=== PATIENT | female | born 2000 | race African-American/Black ===

== ENCOUNTER 2018-03-01 10:27 | Inpatient (IN) | payer MEDICAID ==
[2018-03-01] MEDS ORDERED: RINGERS SOLUTION,LACTATED 1,000 ML IV ONE (10:58)
[2018-03-01] MEDS ORDERED: ACETAMINOPHEN 325 MG TABLET PO PRN (11:05)
[2018-03-01] MEDS ORDERED: CEFTRIAXONE INJ 1000 MG VIAL ONE (11:12)
[2018-03-01] MEDS ORDERED: ACETAMINOPHEN 325 MG TABLET ONE ×2 (11:12→16:22)
--- NOTE | 2018-03-01 11:15 | L&D Progress Notes ---
PROGRESS NOTES Datetime Report Generated by CPN: 03/01/2018 11:15 PROGRESS NOTE Comment: pt came from [facility], left flank pain x 3 days and started a fever last night, frequency Feels sick + CVAT, no leaking of fluid, no bleeding allergic to magalie G1, EDC 3-11-19, [address] Lutz, IV fluids, labs, then Rocephen 1 GM q 24 hours reassuring monitor strip FETUS A Monitoring: External US SIGNATURE SIGNATURE: [id number] Assignment: Vicky Chávez MD Signature: with User ID: [email or web address] : with User ID: [email or web address]
[2018-03-01 11:55] LABS: ABSOLUTE MONOCYTES (AUTO) 2.7 10^3/uL (0.1-1.4); ABSOLUTE NEUT (AUTO) 15.4 10^3/uL (1.7-8.2); BASOPHILS % (AUTO) 0.2 % (0-2); HEMATOCRIT 29.2 % (36.0-47.0); HEMOGLOBIN 9.8 g/dL (12.0-15.5); LYMPHOCYTES % (AUTO) 5.3 % (13-45); MEAN CORPUSCULAR HEMOGLOBIN 26.1 pg (27.0-33.4); MEAN CORPUSCULAR HGB CONC 33.5 g/dL (32.0-36.0); MEAN CORPUSCULAR VOLUME 78 fl (80-97); MONOCYTES % (AUTO) 13.9 % (3-13); PLATELET COUNT 235 10^3/uL (150-450); RED BLOOD COUNT 3.74 10^6/uL (3.72-5.28); SEGMENTED NEUTROPHILS % (AUTO) 80.6 % (42-78); TOTAL CELLS COUNTED % (AUTO) 100 %; WHITE BLOOD COUNT 19.2 10^3/uL (4.0-10.5)
[2018-03-01 11:59] LABS: APPEARANCE,URINE CLOUDY; BILIRUBIN,URINE NEGATIVE (NEGATIVE); COLOR,URINE YELLOW; GLUCOSE, URINE NEGATIVE (NEGATIVE); KETONES,URINE NEGATIVE (NEGATIVE); LEUKOCYTE ESTERASE,URINE LARGE (NEGATIVE); NITRITE,URINE NEGATIVE (NEGATIVE); PROTEIN,URINE 30 mg/dL (NEGATIVE); URINE SPECIFIC GRAVITY 1.013
[2018-03-01 12:15] LABS: URINE AMPHETAMINES SCREEN NEGATIVE; URINE BARBITURATES SCREEN NEGATIVE; URINE BENZODIAZEPINES SCREEN NEGATIVE; URINE COCAINE SCREEN NEGATIVE; URINE MARIJUANA (THC) SCREEN NEGATIVE; URINE METHADONE SCREEN NEGATIVE; URINE PHENCYCLIDINE SCREEN NEGATIVE
[2018-03-01 14:00] LABS: ALANINE AMINOTRANSFERASE 26 U/L (5-35); ALKALINE PHOSPHATASE 101 U/L (50-135); ANION GAP 10 (5-19); ASPARTATE AMINO TRANSFERASE 25 U/L (5-30); BILIRUBIN,DIRECT 0.3 mg/dL (0.0-0.4); BILIRUBIN,TOTAL 0.7 mg/dL (0.2-1.3); BLOOD UREA NITROGEN 5 mg/dL (7-20); CALCIUM 8.6 mg/dL (8.4-10.2); CARBON DIOXIDE 21 mmol/L (22-30); CHLORIDE 102 mmol/L (98-107); GLUCOSE 93 mg/dL (75-110); POTASSIUM 3.3 mmol/L (3.6-5.0); SODIUM 133.4 mmol/L (137-145); TOTAL PROTEIN 6.4 g/dL (6.3-8.2)
[2018-03-01] MEDS ORDERED: LORAZEPAM INJ 2 MG/1 ML VIAL IV ONE (15:11)
--- NOTE | 2018-03-01 15:19 | L&D Progress Notes ---
PROGRESS NOTES Datetime Report Generated by CPN: 03/01/2018 15:18 PROGRESS NOTE Impression Other: pyelonephritis Procedures- Other: monitor/antibiotics Plan: Continue Present Management Vital Signs : Reviewed; Within Normal Limits Comment: Pt called out and stated that she was having chest pains. She looked as if she was having a panic attack. O2 sat is 98% on room air. Will order a CT and EKG. Will also give Ativan 1mg IV. Pain is not reproducible on palpation. FETUS A FHR - Baseline: 130s Monitoring: External US Accelerations: 15X15 Decelerations: None : 29.3 FETUS C SIGNATURE: [id number] Signature: with User ID: [email or web address]
--- NOTE | 2018-03-01 15:26 | L&D Progress Notes ---
PROGRESS NOTES Datetime Report Generated by CPN: 03/01/2018 15:25 PROGRESS NOTE Comment: pt having SOB and epigastric pain, diaphoretic, temp 98.4, pulse 134, not taking deep breaths due to the pain in right flank, does not appear to be having a panic attack, has no hx of anxiety, 02 started, pulse ox 99 without 02, EKG and portable chest ordered, Dr. Lutz notified and asked to come and evaluate patient Dr. Lutz ordered Ativan 1mg IV FETUS C SIGNATURE: [id number] Assignment: Vicky Chávez MD Signature: with User ID: [email or web address] : with User ID: [email or web address]
--- NOTE | 2018-03-01 15:36 | RADIOLOGY REPORT (SQ) ---
EXAM DESCRIPTION: CHEST SINGLE VIEW COMPLETED DATE/TIME: 03/01/2018 3:26 pm REASON FOR STUDY: difficulty breathing; COMPARISON: None. NUMBER OF VIEWS: One view. TECHNIQUE: Single frontal radiographic view of the chest acquired. LIMITATIONS: None. FINDINGS: LUNGS AND PLEURA: No opacities, masses or pneumothorax. No pleural effusion. MEDIASTINUM AND HILAR STRUCTURES: No masses. Contour normal. HEART AND VASCULAR STRUCTURES: Heart normal in size. Normal vasculature. BONES: No acute findings. HARDWARE: None in the chest. OTHER: No other significant finding. IMPRESSION: NO SIGNIFICANT RADIOGRAPHIC FINDING IN THE CHEST. TECHNICAL DOCUMENTATION: JOB ID: [id number] [employer]- All Rights Reserved Reading location - IP/workstation name: [email or web address]
[2018-03-02] MEDS: RINGERS SOLUTION,LACTATED 1,000 ML IV PRN ×3 (00:35→22:14)
[2018-03-02] MEDS ORDERED: ACETAMINOPHEN 325 MG SUPP.RECT PR PRN (01:00)
[2018-03-02] MEDS ORDERED: GENTAMICIN SULFATE INJ 80 MG/2 ML VIAL IV PRN (01:45)
[2018-03-02] MEDS: GENTAMICIN SULFATE 110 MG in DEXTROSE 5%-WATER 100 ML IV SCH ×3 (02:28→18:43)
[2018-03-02] MEDS ORDERED: GENTAMICIN SULFATE INJ 80 MG/2 ML VIAL IV SCH (06:00)
[2018-03-02] MEDS: CEFTRIAXONE SODIUM 1,000 MG in DEXTROSE 5%-WATER 50 ML IV SCH (09:18)
[2018-03-02] MEDS: ACETAMINOPHEN 650 MG SUPP.RECT PR PRN ×2 (09:49→19:57)
[2018-03-02] MEDS ORDERED: CEFTRIAXONE 1 GM/D5W RTU 1 GM/50 ML RTUPB IV SCH (10:00)
[2018-03-02] MEDS ORDERED: CEFTRIAXONE INJ 1000 MG VIAL IV SCH (10:00)
[2018-03-02] MEDS: MORPHINE SULFATE 10 MG/ML INJ IV PRN ×3 (11:35→20:23)
--- NOTE | 2018-03-02 11:38 | PDOC PROGRESS REPORT ---
Subjective Progress Note for:: 03/02/18 Subjective:: "having difficulty with breathing like yesterday" "pain radiating from back to front in my chest" Reason For Visit: PYELONEPHRITIS Physical Exam - Physical Exam Vital Signs: Temp Pulse Resp BP Pulse Ox 98.3 F 109 H 20 95/47 L 98 03/02/18 08:07 03/02/18 08:07 03/02/18 08:07 03/02/18 08:07 03/02/18 08:07 Intake & Output 03/01/18 03/02/18 03/03/18 06:59 06:59 06:59 Intake Total 102.75 1000 Balance 102.75 1000 Weight 64.1 kg General appearance: PRESENT: cooperative, mild distress Head exam: PRESENT: atraumatic Eye exam: PRESENT: PERRLA Mouth exam: PRESENT: moist Respiratory exam: PRESENT: clear to auscultation melissa, tachypnea Cardiovascular exam: PRESENT: +S1, +S2, tachycardia Pulses: PRESENT: normal radial pulses Musculoskeletal exam: PRESENT: other - +CVA tenderness bilateral. Neurological exam: PRESENT: other Result Laboratory Results: 03/01/18 11:47 03/01/18 11:47 03/01/18 03/01/18 03/01/18 10:40 11:47 11:47 WBC 19.2 H RBC 3.74 Hgb 9.8 L Hct 29.2 L MCV 78 L MCH 26.1 L MCHC 33.5 RDW 14.0 Plt Count 235 Seg Neutrophils % 80.6 H Lymphocytes % 5.3 L Monocytes % 13.9 H Eosinophils % 0.0 Basophils % 0.2 Absolute Neutrophils 15.4 H Absolute Lymphocytes 1.0 Absolute Monocytes 2.7 H Absolute Eosinophils 0.0 Absolute Basophils 0.0 Sodium 133.4 L Potassium 3.3 L Chloride 102 Carbon Dioxide 21 L Anion Gap 10 BUN 5 L Creatinine 0.65 Est GFR ( Amer) > 60 Est GFR (Non-Af Amer) > 60 Glucose 93 Calcium 8.6 Total Bilirubin 0.7 AST 25 ALT 26 Alkaline Phosphatase 101 Total Protein 6.4 Albumin 3.0 L Urine Color YELLOW Urine Appearance CLOUDY Urine pH 6.0 Ur Specific [place] 1.013 Urine Protein 30 H Urine Glucose (UA) NEGATIVE Urine Ketones NEGATIVE Urine Blood NEGATIVE Urine Nitrite NEGATIVE Ur Leukocyte Esterase LARGE H Urine WBC (Auto) >182 Urine RBC (Auto) 3 Impressions: Chest X-Ray 03/01/18 00:00 IMPRESSION: NO SIGNIFICANT RADIOGRAPHIC FINDING IN THE CHEST. Assessment & Plan - Diagnosis (1) Pyelonephritis affecting in third trimester Is this a current diagnosis for this admission?: Yes (2) Fever Qualifiers: Fever type: due to other condition Qualified Code(s): R50.81 - Fever presenting with conditions classified elsewhere Is this a current diagnosis for this admission?: Yes (3) Qualifiers: Weeks of gestation: 29 weeks Qualified Code(s): Z3A.29 - 29 weeks gestation of Is this a current diagnosis for this admission?: Yes - Time Time Spent with patient: 15-24 minutes Anticipated discharge: Home Within: within 48 hours - Inpatient Certification Based on my medical assessment, after consideration of the patient's comorbidities, presenting symptoms, or acuity I expect that the services needed warrant INPATIENT care.: Yes I certify that my determination is in accordance with my understanding of Medicare's requirements for reasonable and necessary INPATIENT services [42 CFR 412.3e].: Yes Medical Necessity: Need Close Monitoring Due to Risk of Patient Decompensation, Need For IV Fluids, Need for Pain Control, Need for IV Antibiotics - Plan Summary Plan Summary: continue antipyretics and antibiotics. follow up culture. plan for discharge after 24 hours of afebrile. current temp is 101 now. EKG repeated and is normal.
[2018-03-02 11:53] LABS: HEMATOCRIT 24.5 % (36.0-47.0); HEMOGLOBIN 8.2 g/dL (12.0-15.5); MEAN CORPUSCULAR HEMOGLOBIN 25.9 pg (27.0-33.4); MEAN CORPUSCULAR HGB CONC 33.6 g/dL (32.0-36.0); MEAN CORPUSCULAR VOLUME 77 fl (80-97); PLATELET COUNT 204 10^3/uL (150-450); RED BLOOD COUNT 3.17 10^6/uL (3.72-5.28); RED CELL DISTRIBUTION WIDTH 14.3 % (11.5-14.0); WHITE BLOOD COUNT 14.1 10^3/uL (4.0-10.5)
[2018-03-02 12:25] LABS: ABSOLUTE LYMPHOCYTES# (MANUAL) 0.7 10^3/uL (0.5-4.7); ABSOLUTE MONOCYTES # (MANUAL) 0.4 10^3/uL (0.1-1.4); ANISOCYTOSIS SLIGHT; BAND NEUTROPHILS % (MANUAL) 1 % (3-5); BASOPHILS % (MANUAL) 0 % (0-2); EOSINOPHILS % (MANUAL) 0 % (0-6); HYPOCHROMASIA SLIGHT; LYMPHOCYTES % (MANUAL) 5 % (13-45); MONOCYTES % (MANUAL) 3 % (3-13); OVALOCYTES SLIGHT; PLATELET COMMENT ADEQUATE; POLYCHROMASIA SLIGHT; SEGMENTED NEUTROPHILS % (MAN) 91 % (42-78); TOTAL CELLS COUNTED 100; TOXIC GRANULATION SLIGHT; TOXIC VACUOLATION PRESENT
--- NOTE | 2018-03-02 12:52 | RADIOLOGY REPORT (SQ) ---
EXAM DESCRIPTION: U/S RETROPERITON (RENAL/AORTA) COMPLETED DATE/TIME: 03/02/2018 12:36 pm REASON FOR STUDY: breakthrough fever and pain with pyelonephritis COMPARISON: None. TECHNIQUE: Dynamic and static grayscale images acquired of the kidneys and bladder and recorded on P ACS. Additional selected color Doppler and spectral images recorded. LIMITATIONS: None. FINDINGS: RIGHT KIDNEY: Normal size. Normal echogenicity. No solid or suspicious masses. No h ydronephrosis. No calcifications. LEFT KIDNEY: Normal size. Normal echogenicity. No solid or suspicious masses. No hydronephrosi s. No calcifications. BLADDER: Mobile debris. No masses. OTHER FINDINGS: Trace right pleural effusion. IMPRESSION: UTI. No hydronephrosis. COMMENT: The degree of renal pelvocalyceal dilation is correlated with the patient's current stage o f . TECHNICAL DOCUMENTATION: JOB ID: [id number] [employer]- All Rights Reserved Reading location - IP/workstation name: [email or web address]
--- NOTE | 2018-03-02 15:09 | EKG REPORT ---
SEVERITY:- BORDERLINE ECG - SINUS TACHYCARDIA BORDERLINE T ABNORMALITIES, ANTERIOR LEADS : Confirmed by: Arsh Lynne 02-Mar-2018 15:09:06
--- NOTE | 2018-03-02 15:09 | EKG REPORT ---
SEVERITY:- OTHERWISE NORMAL ECG - SINUS TACHYCARDIA : Confirmed by: Arsh Lynne 02-Mar-2018 15:08:59
[2018-03-02] MEDS ORDERED: MORPHINE SULFATE 10 MG/ML INJ ONE (16:06)
[2018-03-02] MEDS ORDERED: IBUPROFEN 800 MG TABLET ONE (20:17)
[2018-03-02] MEDS ORDERED: IBUPROFEN 800 MG TABLET PO ONE (20:45)
[2018-03-02] MEDS ORDERED: NORMAL SALINE 500 ML IV ONE (21:30)
[2018-03-03] MEDS: GENTAMICIN SULFATE 110 MG in DEXTROSE 5%-WATER 100 ML IV SCH ×2 (01:39→10:09)
[2018-03-03] MEDS: ACETAMINOPHEN 325 MG TABLET PO PRN ×3 (03:37→20:31)
[2018-03-03] MEDS: RINGERS SOLUTION,LACTATED 1,000 ML IV PRN ×2 (06:18→18:01)
[2018-03-03 06:39] LABS: ABSOLUTE BASOPHILS # (AUTO) 0.1 10^3/uL (0.0-0.2); ABSOLUTE LYMPHOCYTES (AUTO) 0.8 10^3/uL (0.5-4.7); ABSOLUTE MONOCYTES (AUTO) 1.2 10^3/uL (0.1-1.4); ABSOLUTE NEUT (AUTO) 8.7 10^3/uL (1.7-8.2); BASOPHILS % (AUTO) 0.5 % (0-2); EOSINOPHILS % (AUTO) 0.5 % (0-6); HEMATOCRIT 25.3 % (36.0-47.0); HEMOGLOBIN 8.6 g/dL (12.0-15.5); LYMPHOCYTES % (AUTO) 7.5 % (13-45); MEAN CORPUSCULAR HEMOGLOBIN 26.4 pg (27.0-33.4); MEAN CORPUSCULAR VOLUME 78 fl (80-97); MONOCYTES % (AUTO) 10.9 % (3-13); PLATELET COUNT 202 10^3/uL (150-450); RED BLOOD COUNT 3.27 10^6/uL (3.72-5.28); RED CELL DISTRIBUTION WIDTH 14.2 % (11.5-14.0); SEGMENTED NEUTROPHILS % (AUTO) 80.6 % (42-78); TOTAL CELLS COUNTED % (AUTO) 100 %; WHITE BLOOD COUNT 10.8 10^3/uL (4.0-10.5)
--- NOTE | 2018-03-03 07:54 | PDOC PROGRESS REPORT ---
Subjective Progress Note for:: 03/03/18 Reason For Visit: PYELONEPHRITIS patient much improved over last night when I was called to her bedside at that time for cont'd fever, tachypnea and tachycardia. Round the clock tylenol initiated at that time rather than PRN. Today patient is more comfortable and tolerating small amounts of food and liquids Physical Exam - Physical Exam Vital Signs: Temp Pulse Resp BP Pulse Ox 97.7 F 121 H 18 125/78 100 03/03/18 03:26 03/03/18 03:26 03/03/18 03:26 03/03/18 03:26 03/03/18 03:26 Intake & Output 03/02/18 03/03/18 03/04/18 06:59 06:59 06:59 Intake Total 102.75 3858.25 Balance 102.75 3858.25 Weight 64.1 kg General appearance: PRESENT: no acute distress, cooperative GI/Abdominal exam: PRESENT: soft - CVA tenderness still present Result Laboratory Results: 03/03/18 06:23 03/01/18 11:47 03/02/18 03/03/18 11:41 06:23 WBC 14.1 H 10.8 H RBC 3.17 L 3.27 L Hgb 8.2 L 8.6 L Hct 24.5 L 25.3 L MCV 77 L 78 L MCH 25.9 L 26.4 L MCHC 33.6 34.0 RDW 14.3 H 14.2 H Plt Count 204 202 Seg Neutrophils % Not Reportable 80.6 H Lymphocytes % Not Reportable 7.5 L Monocytes % Not Reportable 10.9 Eosinophils % Not Reportable 0.5 Basophils % Not Reportable 0.5 Absolute Neutrophils Not Reportable 8.7 H Absolute Lymphocytes Not Reportable 0.8 Absolute Monocytes Not Reportable 1.2 Absolute Eosinophils Not Reportable 0.0 Absolute Basophils Not Reportable 0.1 Impressions: Chest X-Ray 03/01/18 00:00 IMPRESSION: NO SIGNIFICANT RADIOGRAPHIC FINDING IN THE CHEST. Renal Ultrasound 03/02/18 00:00 IMPRESSION: UTI. No hydronephrosis. Assessment & Plan - Diagnosis (1) Pyelonephritis affecting in third trimester Is this a current diagnosis for this admission?: Yes (2) Fever Qualifiers: Fever type: due to other condition Qualified Code(s): R50.81 - Fever presenting with conditions classified elsewhere Is this a current diagnosis for this admission?: Yes (3) Qualifiers: Weeks of gestation: 29 weeks Qualified Code(s): Z3A.29 - 29 weeks gestation of Is this a current diagnosis for this admission?: Yes - Time Time Spent with patient: Less than 15 minutes Anticipated discharge: Home Within: within 48 hours - Inpatient Certification Based on my medical assessment, after consideration of the patient's comorbidities, presenting symptoms, or acuity I expect that the services needed warrant INPATIENT care.: Yes I certify that my determination is in accordance with my understanding of Medicare's requirements for reasonable and necessary INPATIENT services [42 CFR 412.3e].: Yes Medical Necessity: Need Close Monitoring Due to Risk of Patient Decompensation, Need For IV Fluids, Need for IV Antibiotics - Plan Summary Plan Summary: discussed with patient and family that pyelo can take up to 72 hours of antibiotics before illness starts to improve. Will continue with current care as her fever and symptoms have improved with the round the clock tylenol to control fever.
[2018-03-03 11:07] LABS: GENTAMICIN-TROUGH 1.8 ug/mL (<2.0)
[2018-03-03] MEDS: CEFTRIAXONE SODIUM 1,000 MG in DEXTROSE 5%-WATER 50 ML IV SCH (11:15)
[2018-03-03 12:44] LABS: GENTAMICIN-PEAK 6.8 ug/mL (5.0-10.0)
[2018-03-03] MEDS: MORPHINE SULFATE 10 MG/ML INJ IV PRN ×2 (17:01→21:07)
[2018-03-03] MEDS ORDERED: GENTAMICIN SULFATE 110 MG in DEXTROSE 5%-WATER 100 ML IV SCH (22:00)
[2018-03-04] MEDS: ACETAMINOPHEN 325 MG TABLET PO PRN ×5 (03:59→23:50)
[2018-03-04] MEDS: MORPHINE SULFATE 10 MG/ML INJ IV PRN (03:59)
--- NOTE | 2018-03-04 08:09 | PDOC PROGRESS REPORT ---
Subjective Progress Note for:: 03/04/18 Subjective:: still with right sided pain, now with left sided pain as well., still intermittent fevers, now tachypnea and desat, currently on 2L Reason For Visit: PYELONEPHRITIS Physical Exam - Physical Exam Vital Signs: Temp Pulse Resp BP Pulse Ox 97.9 F 125 H 28 H 123/62 96 03/04/18 05:23 03/04/18 05:23 03/04/18 05:23 03/03/18 22:26 03/04/18 05:23 Intake & Output 03/03/18 03/04/18 03/05/18 06:59 06:59 06:59 Intake Total 3858.25 2202.75 152.75 Output Total 1600 Balance 3858.25 602.75 152.75 General appearance: PRESENT: no acute distress, thin, well-developed Head exam: PRESENT: atraumatic, normocephalic Neck exam: PRESENT: full ROM. ABSENT: carotid bruit, JVD, lymphadenopathy, thyromegaly Respiratory exam: PRESENT: decreased breath sounds - in bases, symmetrical, tachypnea. ABSENT: chest wall tenderness Cardiovascular exam: PRESENT: RRR. ABSENT: diastolic murmur, rubs, systolic m urmur Pulses: PRESENT: normal dorsalis pedis pul, +2 pedal pulses bilateral Vascular exam: PRESENT: normal capillary refill GI/Abdominal exam: PRESENT: normal bowel sounds, soft. ABSENT: distended, guarding, mass, organolmegaly, rebound, tenderness Extremities exam: PRESENT: full ROM. ABSENT: calf tenderness, clubbing, pedal edema Neurological exam: PRESENT: alert, awake, oriented to person, oriented to place, oriented to time, oriented to situation, CN II-XII grossly intact. ABSENT: motor sensory deficit Psychiatric exam: PRESENT: appropriate affect, normal mood. ABSENT: homicidal ideation, suicidal ideation Skin exam: PRESENT: dry, intact, warm. ABSENT: cyanosis, rash Result Laboratory Results: 03/03/18 06:23 03/03/18 10:05 03/03/18 10:05 Creatinine 0.60 Est GFR ( Amer) > 60 Est GFR (Non-Af Amer) > 60 03/01/18 10:40 Clean Catch Midstream Urine Culture - Final Escherichia Coli Impressions: Chest X-Ray 03/01/18 00:00 IMPRESSION: NO SIGNIFICANT RADIOGRAPHIC FINDING IN THE CHEST. Renal Ultrasound 03/02/18 00:00 IMPRESSION: UTI. No hydronephrosis. Status: Imported from PACS Assessment & Plan - Diagnosis (1) Pyelonephritis affecting in third trimester Is this a current diagnosis for this admission?: Yes Plan: Change abx to zosyn. Urine was E coli. Hospitalist consult requested to help with refractory fever. (2) Fever Qualifiers: Fever type: due to other condition Qualified Code(s): R50.81 - Fever presenting with conditions classified elsewhere Is this a current diagnosis for this admission?: Yes Plan: refractory fever. Differential: renal abscess vs drug fever vs atelectasis vs DVT/PE/Pelvis Thrombosis. Discontinue ROcephin/Gent and change to Zosyn (e coli UTI was salazar sensitive) discontinue Morphine - oxycodone ordered for breakthrough. Tylenol scheduled. CXR - shielded abdomen poss DVT/PE/pelvic vein thrombosis - tachypnea currently - will get CXR, pelvic vein thrombosis is a dx of exclusion usually. Consider heparin depending on US and CXR findings. Obtain Bhanu renal US for r/o renal abscess Encourage Incentive Spirometer - lasix once today. - Time Time Spent with patient: 25-34 minutes Medications reviewed and adjusted accordingly: Yes Anticipated discharge: Home Within: within 48 hours - Inpatient Certification Based on my medical assessment, after consideration of the patient's comorbidities, presenting symptoms, or acuity I expect that the services needed warrant INPATIENT care.: Yes I certify that my determination is in accordance with my understanding of Medicare's requirements for reasonable and necessary INPATIENT services [42 CFR 412.3e].: Yes Medical Necessity: Need For IV Fluids, Need for Pain Control, Need for IV Antibiotics
[2018-03-04] MEDS ORDERED: PIPERACILLIN/TAZOBACTAM 3.375 GM VIAL IV ONE (08:17)
[2018-03-04] MEDS ORDERED: OXYCODONE HCL IR 5 MG TABLET PO PRN (08:18)
--- NOTE | 2018-03-04 09:33 | RADIOLOGY REPORT (SQ) ---
EXAM DESCRIPTION: U/S RETROPERITON LTD COMPLETED DATE/TIME: 03/04/2018 9:18 am REASON FOR STUDY: Bilateral CVAT, need Bilateral Renal US COMPARISON: 03/02/2018. TECHNIQUE: Dynamic and static grayscale images acquired of the kidneys and bladder and recorded on P ACS. Additional selected color Doppler and spectral images recorded. LIMITATIONS: None. FINDINGS: RIGHT KIDNEY: Mild-moderate hydronephrosis has developed. No discrete stones or masses. Normal size. Kidney slightly echogenic on today's study. LEFT KIDNEY: Mild hydronephrosis has developed. No discrete stones or mass. Normal size. Kidney s lightly echogenic on today's study. BLADDER: Decompressed, not assessed. OTHER FINDINGS: Bilateral pleural effusions. IMPRESSION: 1. Interval development of hydronephrosis bilaterally, right greater than left. TECHNICAL DOCUMENTATION: JOB ID: [id number] [employer]- All Rights Reserved Reading location - IP/workstation name: [email or web address]
--- NOTE | 2018-03-04 09:53 | RADIOLOGY REPORT (SQ) ---
EXAM DESCRIPTION: CHEST 2 VIEWS COMPLETED DATE/TIME: 03/04/2018 9:33 am REASON FOR STUDY: refractory fevers, decreased breath sounds in base COMPARISON: 03/01/2018 TECHNIQUE: Frontal and lateral radiographic views of the chest acquired. NUMBER OF VIEWS: Two view. LIMITATIONS: None. FINDINGS: LUNGS AND PLEURA: Consolidation has developed in the left lower lobe. Patchy airspace dis ease otherwise in the lower lung nielsen. No pneumothorax. No suggestion of significant pleural effu jean-pierre. MEDIASTINUM AND HILAR STRUCTURES: No masses or contour abnormalities. HEART AND VASCULAR STRUCTURES: Heart normal size. No evidence for failure. BONES: No acute findings. HARDWARE: None in the chest. OTHER: No other significant finding. IMPRESSION: Pneumonia, most pronounced in the left lower lobe. TECHNICAL DOCUMENTATION: JOB ID: [id number] [employer]- All Rights Reserved Reading location - IP/workstation name: [email or web address]
[2018-03-04] MEDS ORDERED: CEFTRIAXONE SODIUM 1,000 MG in DEXTROSE 5%-WATER 50 ML IV SCH (10:00)
[2018-03-04] MEDS ORDERED: CEFTRIAXONE INJ 1000 MG VIAL IV SCH (10:00)
[2018-03-04] MEDS ORDERED: FUROSEMIDE INJ/PF 20 MG/2 ML SDV IV ONE (10:00)
[2018-03-04 10:11] LABS: ABSOLUTE EOSINOPHILS # (AUTO) 0.1 10^3/uL (0.0-0.6); ABSOLUTE MONOCYTES (AUTO) 1.3 10^3/uL (0.1-1.4); ABSOLUTE NEUT (AUTO) 6.6 10^3/uL (1.7-8.2); BASOPHILS % (AUTO) 0.5 % (0-2); EOSINOPHILS % (AUTO) 0.7 % (0-6); HEMATOCRIT 26.7 % (36.0-47.0); HEMOGLOBIN 9.1 g/dL (12.0-15.5); LYMPHOCYTES % (AUTO) 11.5 % (13-45); MEAN CORPUSCULAR HEMOGLOBIN 26.2 pg (27.0-33.4); MEAN CORPUSCULAR HGB CONC 34.1 g/dL (32.0-36.0); MEAN CORPUSCULAR VOLUME 77 fl (80-97); MONOCYTES % (AUTO) 14.7 % (3-13); PLATELET COUNT 258 10^3/uL (150-450); RED BLOOD COUNT 3.47 10^6/uL (3.72-5.28); RED CELL DISTRIBUTION WIDTH 14.5 % (11.5-14.0); SEGMENTED NEUTROPHILS % (AUTO) 72.6 % (42-78); TOTAL CELLS COUNTED % (AUTO) 100 %; WHITE BLOOD COUNT 9.1 10^3/uL (4.0-10.5)
[2018-03-04 10:21] LABS: ALANINE AMINOTRANSFERASE 35 U/L (5-35); ALBUMIN 2.7 g/dL (3.7-5.6); ALKALINE PHOSPHATASE 112 U/L (50-135); ANION GAP 6 (5-19); ASPARTATE AMINO TRANSFERASE 42 U/L (5-30); BILIRUBIN,DIRECT 0.2 mg/dL (0.0-0.4); BILIRUBIN,TOTAL 0.4 mg/dL (0.2-1.3); BLOOD UREA NITROGEN 4 mg/dL (7-20); CALCIUM 8.5 mg/dL (8.4-10.2); CARBON DIOXIDE 24 mmol/L (22-30); CHLORIDE 108 mmol/L (98-107); GLUCOSE 101 mg/dL (75-110); POTASSIUM 3.3 mmol/L (3.6-5.0); SODIUM 138.4 mmol/L (137-145); TOTAL PROTEIN 5.5 g/dL (6.3-8.2)
[2018-03-04] MEDS: PIPERACILLIN SODIUM/TAZOBACTAM 3.375 GM in NORMAL SALINE 100 ML IV SCH ×3 (10:59→21:50)
[2018-03-04] MEDS: MICONAZOLE NITRATE 2% VAGINAL CREAM 45 GM TUBE VG SCH (11:00)
[2018-03-04] MEDS: RINGERS SOLUTION,LACTATED 1,000 ML IV PRN (13:43)
--- NOTE | 2018-03-04 14:28 | PDOC CONSULTATION ---
Consultation Consult Date: 03/04/18 Consult reason:: sepsis due to pyelonephritis History of Present Illness Admission Date/PCP: 03/01/18 13:46 History of Present Illness: RAJNI ESCALANTE is a 17 year old female 29 weeks who was admitted by the obstetrics service with pyelonephritis. She was started on Rocephin. Urine culture shows a pansensitive E. coli. The patient was persistently febrile most of her first day in the hospital, and some of the second day, and has been intermittently febrile since then. Her vital signs have otherwise been stable, with the exception of some reported hypoxemia requiring oxygen. When I saw the patient today she was sitting comfortably in her bed trying to figure out how to use the incentive spirometer. She was speaking in complete sentences. Her white blood cell count has been trending down since admission. She is been eating and drinking without difficulty. Because of concerns for potential breathing problems and for intermittent persistent fevers, our service was consulted. Past Medical History Medical History: None Past Surgical History Past Surgical History: Reports: None Social History Information Source: Patient Lives with: Family Smoking Status: Never Smoker Frequency of Alcohol Use: None Hx Recreational Drug Use: No Family History Family History: Reviewed & Not Pertinent Parental Family History Reviewed: Yes - Noncontributory Children Family History Reviewed: NA Sibling(s) Family History Reviewed.: Yes - Noncontributory Medication/Allergy Home Medications: Acetaminophen [Tylenol 325 mg Tablet] 2 tab PO Q4 PRN 03/01/18 Vits96/Iron Fum/Folic [ Tablet] 1 tab PO DAILY 03/01/18 Allergies/Adverse Reactions: No Known Allergies Allergy (Unverified 03/01/18 10:45) Review of Systems All systems: reviewed and no additional remarkable complaints except as stated - A 10 point review of systems was conducted with the patient and was negative except as noted above Physical Exam Vital Signs: Temp Pulse Resp BP Pulse Ox 97.6 F 101 H 20 127/78 H 97 03/04/18 08:00 03/04/18 08:00 03/04/18 08:00 03/04/18 08:00 03/04/18 08:00 Intake & Output 03/03/18 03/04/18 03/05/18 06:59 06:59 06:59 Intake Total 3858.25 2202.75 252.75 Output Total 1600 Balance 3858.25 602.75 252.75 General appearance: PRESENT: no acute distress, cooperative Head exam: PRESENT: atraumatic, normocephalic Eye exam: PRESENT: EOMI, PERRLA. ABSENT: conjunctival injection, nystagmus, scleral icterus Ear exam: PRESENT: normal external ear exam Mouth exam: PRESENT: moist, neck supple Throat exam: ABSENT: post pharyngeal erythema Neck exam: PRESENT: full ROM. ABSENT: carotid bruit, JVD, lymphadenopathy, meningismus, tenderness, thyromegaly Respiratory exam: PRESENT: clear to auscultation melissa, symmetrical, unlabored. ABSENT: accessory muscle use, rales, rhonchi, stridor, tachypnea, wheezes Cardiovascular exam: PRESENT: RRR, +S1, +S2 Vascular exam: PRESENT: normal capillary refill GI/Abdominal exam: PRESENT: normal bowel sounds, other - Gravid. ABSENT: guarding, rebound, tenderness Extremities exam: ABSENT: clubbing, pedal edema Musculoskeletal exam: PRESENT: normal inspection. ABSENT: deformity Neurological exam: PRESENT: alert, awake, oriented to person, oriented to place, oriented to time, oriented to situation, CN II-XII grossly intact. ABSENT: motor sensory deficit Psychiatric exam: PRESENT: appropriate affect, normal mood Skin exam: PRESENT: dry, warm Results Laboratory Results: 03/04/18 08:44 03/04/18 08:44 03/04/18 03/04/18 03/04/18 08:44 08:44 08:44 WBC 9.1 RBC 3.47 L Hgb 9.1 L Hct 26.7 L MCV 77 L MCH 26.2 L MCHC 34.1 RDW 14.5 H Plt Count 258 Seg Neutrophils % 72.6 Lymphocytes % 11.5 L Monocytes % 14.7 H Eosinophils % 0.7 Basophils % 0.5 Absolute Neutrophils 6.6 Absolute Lymphocytes 1.0 Absolute Monocytes 1.3 Absolute Eosinophils 0.1 Absolute Basophils 0.0 Sodium 138.4 Potassium 3.3 L Chloride 108 H Carbon Dioxide 24 Anion Gap 6 BUN 4 L Creatinine 0.60 Est GFR ( Amer) > 60 Est GFR (Non-Af Amer) > 60 Glucose 101 Lactic Acid 0.8 Calcium 8.5 Total Bilirubin 0.4 AST 42 H ALT 35 Alkaline Phosphatase 112 Total Protein 5.5 L Albumin 2.7 L TSH 03/04/18 08:44 WBC RBC Hgb Hct MCV MCH MCHC RDW Plt Count Seg Neutrophils % Lymphocytes % Monocytes % Eosinophils % Basophils % Absolute Neutrophils Absolute Lymphocytes Absolute Monocytes Absolute Eosinophils Absolute Basophils Sodium Potassium Chloride Carbon Dioxide Anion Gap BUN Creatinine Est GFR ( Amer) Est GFR (Non-Af Amer) Glucose Lactic Acid Calcium Total Bilirubin AST ALT Alkaline Phosphatase Total Protein Albumin TSH 1.91 03/01/18 10:40 Clean Catch Midstream Urine Culture - Final Escherichia Coli Impressions: Chest X-Ray 03/04/18 08:04 IMPRESSION: Pneumonia, most pronounced in the left lower lobe. Renal Ultrasound 03/04/18 08:09 IMPRESSION: 1. Interval development of hydronephrosis bilaterally, right great er than left. Assessment & Plan - Diagnosis (1) Pyelonephritis affecting in third trimester Is this a current diagnosis for this admission?: Yes Plan: She is currently on Rocephin, and gentamicin had been added for possible synergy. I think that Rocephin in this case would be sufficient, especially given that the E. coli in her urine was pansensitive. While it is not wrong to continue gentamicin, she will have to be monitored very closely for signs of toxicity. women with pyelonephritis are at increased risk for developing pulmonary edema and ARDS, and while she may have some of the former, I do not believe she is developing the latter, at least not at this time. She appears to be very comfortable with her breathing at the time that I saw her, and I agree with incentive spirometry and attempts to wean oxygen as tolerated. She was noted to have a small pleural effusion on her renal ultrasound, this correlates with the findings on her chest x-ray today. It was interpreted as a pneumonia but I think it is a left pleural effusion. I think that the current plan in place is sufficient for the time being. I would continue antibiotics as noted above, and I believe as her infection clears her respiratory complaint will also resolve. We will of course monitor her closely and adjust management as the clinical situation dictates.
--- NOTE | 2018-03-04 23:46 | EKG REPORT ---
SEVERITY:- BORDERLINE ECG - SINUS TACHYCARDIA PROBABLE LEFT ATRIAL ABNORMALITY BORDERLINE T ABNORMALITIES, ANTERIOR LEADS : Confirmed by: Arsh Lynne 04-Mar-2018 23:46:03
[2018-03-05] MEDS: PIPERACILLIN SODIUM/TAZOBACTAM 3.375 GM in NORMAL SALINE 100 ML IV SCH ×4 (02:39→21:30)
[2018-03-05] MEDS: RINGERS SOLUTION,LACTATED 1,000 ML IV PRN ×2 (02:41→19:21)
[2018-03-05] MEDS: ACETAMINOPHEN 325 MG TABLET PO PRN ×2 (08:24→19:20)
[2018-03-05] MEDS: MICONAZOLE NITRATE 2% VAGINAL CREAM 45 GM TUBE VG SCH (10:57)
--- NOTE | 2018-03-05 15:12 | PDOC PROGRESS REPORT ---
Subjective Progress Note for:: 03/05/18 Subjective:: No adverse events overnight. The patient has remained afebrile overnight. White blood cell count continues to trend down. Tachycardia seems to have resolved. SPO2 is excellent on room air. Reason For Visit: PYELONEPHRITIS Physical Exam Vital Signs: Temp Pulse Resp BP Pulse Ox 98.0 F 85 18 122/74 99 03/05/18 12:27 03/05/18 12:27 03/05/18 12:27 03/05/18 12:27 03/05/18 12:27 Intake & Output 03/04/18 03/05/18 03/06/18 06:59 06:59 06:59 Intake Total 2202.75 3005.75 Output Total 1600 Balance 602.75 3005.75 Results Laboratory Results: 03/04/18 08:44 03/04/18 08:44 Impressions: Chest X-Ray 03/04/18 08:04 IMPRESSION: Pneumonia, most pronounced in the left lower lobe. Renal Ultrasound 03/04/18 08:09 IMPRESSION: 1. Interval development of hydronephrosis bilaterally, right greater than left. Assessment & Plan - Diagnosis (1) Pyelonephritis affecting in third trimester Is this a current diagnosis for this admission?: Yes Plan: Patient has responded well to antibiotic therapy. She can be transitioned to o ral antibiotics at the primary service's discretion. There are a number of options to pick from from a safety in standpoint, as the organism has an excellent susceptibility profile. She will need 10-14 days total of therapy. - Time Time Spent with patient: Less than 15 minutes
--- NOTE | 2018-03-05 16:49 | PDOC PROGRESS REPORT ---
Subjective Progress Note for:: 03/05/18 Subjective:: afebrile since 0300 on 03/05/2018, no further tachypnea, no further tachycardia, doing well, visiting with family in room. Reason For Visit: PYELONEPHRITIS Physical Exam - Physical Exam Vital Signs: Temp Pulse Resp BP Pulse Ox 98.0 F 85 18 122/74 99 03/05/18 12:27 03/05/18 12:27 03/05/18 12:27 03/05/18 12:27 03/05/18 12:27 Intake & Output 03/04/18 03/05/18 03/06/18 06:59 06:59 06:59 Intake Total 2202.75 3005.75 100 Output Total 1600 Balance 602.75 3005.75 100 General appearance: PRESENT: no acute distress, well-developed, well-nourished Head exam: PRESENT: atraumatic, normocephalic Respiratory exam: PRESENT: clear to auscultation melissa, symmetrical, unlabored Cardiovascular exam: PRESENT: RRR. ABSENT: diastolic murmur, rubs, systolic murmur Pulses: PRESENT: normal dorsalis pedis pul, +2 pedal pulses bilateral GI/Abdominal exam: PRESENT: normal bowel sounds, soft. ABSENT: distended, guarding, mass, organolmegaly, rebound, tenderness Rectal exam: PRESENT: deferred Extremities exam: PRESENT: full ROM. ABSENT: calf tenderness, clubbing, pedal edema Neurological exam: PRESENT: alert, awake, oriented to person, oriented to place, oriented to time, oriented to situation, CN II-XII grossly intact. ABSENT: motor sensory deficit Result Laboratory Results: 03/04/18 08:44 03/04/18 08:44 Impressions: Chest X-Ray 03/04/18 08:04 IMPRESSION: Pneumonia, most pronounced in the left lower lobe. Renal Ultrasound 03/04/18 08:09 IMPRESSION: 1. Interval development of hydronephrosis bilaterally, right greater than left. Assessment & Plan - Diagnosis (1) Pyelonephritis affecting in third trimester Is this a current diagnosis for this admission?: Yes Plan: Changed abx to zosyn yesterday and now afebrile. Urine cx was E coli and pansensitive Hospitalist consult requested to help with refractory fever. We appreciate there assistance Will be afebrile for 48 at 0300 on 03/06. Will continue IV abx until then - then switch to po abx. And if does well then discharge to home with po abx and f/u in the office. Appt in office on 03/07 at 1300 per pt. potentially home tomorrow afternoon or 03/07 (2) Fever Qualifiers: Fever type: due to other condition Qualified Code(s): R50.81 - Fever presenting with conditions classified elsewhere Is this a current diagnosis for this admission?: Yes Plan: afebrile since 0300 on 03/04. - Time Time Spent with patient: 15-24 minutes Medications reviewed and adjusted accordingly: Yes Anticipated discharge: Home Within: within 48 hours - Inpatient Certification Based on my medical assessment, after consideration of the patient's comorbidities, presenting symptoms, or acuity I expect that the services needed warrant INPATIENT care.: Yes I certify that my determination is in accordance with my understanding of Medicare's requirements for reasonable and necessary INPATIENT services [42 CFR 412.3e].: Yes Medical Necessity: Need For IV Fluids, Need for IV Antibiotics
[2018-03-06] MEDS: PIPERACILLIN SODIUM/TAZOBACTAM 3.375 GM in NORMAL SALINE 100 ML IV SCH (03:00)
[2018-03-06] MEDS: MICONAZOLE NITRATE 2% VAGINAL CREAM 45 GM TUBE VG SCH (10:00)
[2018-03-06] MEDS ORDERED: FUROSEMIDE 20 MG TABLET PO ONE (10:46)
[2018-03-06] MEDS ORDERED: CEPHALEXIN 500 MG CAPSULE PO SCH (11:00)
[2018-03-06] MEDS ORDERED: FLUCONAZOLE 100 MG TABLET PO ONE (12:00)
--- NOTE | 2018-03-06 16:26 | RADIOLOGY REPORT (SQ) ---
EXAM DESCRIPTION: U/S PROFILE W/O STRESS COMPLETED DATE/TIME: 03/06/2018 4:17 pm REASON FOR STUDY: NR NST COMPARISON: None. TECHNIQUE: Limited thao-scale realtime and static images of the fetus to measure specified parameter s. LIMITATIONS: None. FINDINGS: HEART RATE: 150-157 beats per minute. TERI: 8.6 cm. BREATHING MOVEMENT: 2 points. MOVEMENT: 2 points. POSTURE AND TONE: 2 points. QUALITATIVE TERI: 2 points. OTHER: No other significant finding. IMPRESSION: BIOPHYSICAL PROFILE: 10/11. Trimester of : Third - 28 weeks to delivery COMMENT: BREATHING MOVEMENTS: 2 POINTS: PRESENT 0 POINTS: ABSENT MOTION: 2 POINTS: PRESENT 0 POINTS: ABSENT TONE: 2 POINTS: PRESENT 0 POINTS: ABSENT AMNIOTIC FLUID VOLUME: 2 POINTS: LARGEST POCKET GREATER THAN 2 CM DEPTH. 0 POINTS: NO POCKET OF 2 CM. TECHNICAL DOCUMENTATION: JOB ID: [id number] [employer]- All Rights Reserved Reading location - IP/workstation name: [email or web address]
[2018-03-06 17:07] VITALS: BP 121/71
--- NOTE | 2018-03-06 18:33 | PDOC DISCHARGE SUMMARY ---
General - Admit/Disc Date/PCP Admission Date/Primary Care Provider: 03/01/18 13:46 Discharge Date: 03/06/18 - Discharge Diagnosis (1) Pyelonephritis affecting in third trimester Is this a current diagnosis for this admission?: Yes (2) Fever Is this a current diagnosis for this admission?: Yes (3) Is this a current diagnosis for this admission?: Yes (4) labial edema Is this a current diagnosis for this admission?: Yes - Additional Information Home Medications: Acetaminophen [Tylenol 325 mg Tablet] 2 tab PO Q4 PRN 03/01/18 Vits96/Iron Fum/Folic [ Tablet] 1 tab PO DAILY 03/01/18 History of Present Illness History of Present Illness: RAJNI ESCALANTE is a 17 year old female @ 30 wks EGA admitted for pyelonephritis. Continued to spike temps and did develop mild pneumonia. Is now doing better after receiving diflucan and lasix for her labial swelling and indicates elvis she desires discharge home. Is now tolerating Keflex PO. her saturation and temp are now normal. She is ambulating well with no further tachypnea or tachycardia. Physical Exam - Physical Exam Vital Signs: Temp Pulse Resp BP Pulse Ox 98.0 F 92 H 18 121/71 99 03/06/18 17:05 03/06/18 17:05 03/06/18 17:05 03/06/18 17:05 03/06/18 17:05 Intake & Output 03/05/18 03/06/18 03/07/18 06:59 06:59 06:59 Intake Total 3005.75 2500 Balance 3005.75 2500 General appearance: PRESENT: no acute distress, cooperative - Gynecological Exam Labia: other - edema of right labia. - Obstetrical Exam Fundal Height: 1/u - 2/u Tender: No Result Laboratory Results: 03/04/18 08:44 03/04/18 08:44 Impressions: Chest X-Ray 03/04/18 08:04 IMPRESSION: Pneumonia, most pronounced in the left lower lobe. Renal Ultrasound 03/04/18 08:09 IMPRESSION: 1. Interval development of hydronephrosis bilaterally, right greater than left. Stress Test 03/06/18 00:00 IMPRESSION: BIOPHYSICAL PROFILE: 10/11. Trimester of : Third - 28 weeks to delivery Plan Discharge Plan: discharge home with keflex and small prescrition for pain medication to be used sparingly due to risks of opiod dependence and risks of KALIA. Patient should rely less on narcotics in the upcoming days for pain relief and if not then she sneeds to return right away for re-evaluation. Time Spent: Less than 30 Minutes
== END 2018-03-06 19:05 | disposition home or self-care (01) | DRG 831 ==
LOC: LC 10:27 → LR 13:46 → 2N 19:03
PROVIDERS: ADMIT Obstetrics & Gynecology; ATTEND Obstetrics & Gynecology
DX: O23.03 Infections of kidney in pregnancy, third trimester (principal); N12 Tubulo-interstitial nephritis, not specified as acute or chronic; B96.20 Unspecified Escherichia coli [E. coli] as the cause of diseases classified elsewhere; O99.513 Diseases of the respiratory system complicating pregnancy, third trimester; J18.9 Pneumonia, unspecified organism; R60.9 Edema, unspecified; Z3A.29 29 weeks gestation of pregnancy
CPT/HCPCS: 36415; 59025; 71045; 71046; 76770; 76775; 76819; 80053; 80170; 80307; 81001; 82565; 83605; 84443; 85025; 87040; 87086; 87088; 87186; 93005; 93010; J0696; J1580; J1940; J2060; J2270; J2543; J3490; J7040; J7120

== ENCOUNTER 2018-05-15 08:12 | Outpatient (CLI) | payer MEDICAID ==
[2018-05-15 08:51] LABS: APPEARANCE,URINE CLOUDY; BILIRUBIN,URINE NEGATIVE (NEGATIVE); COLOR,URINE YELLOW; GLUCOSE, URINE NEGATIVE (NEGATIVE); KETONES,URINE NEGATIVE (NEGATIVE); LEUKOCYTE ESTERASE,URINE LARGE (NEGATIVE); NITRITE,URINE NEGATIVE (NEGATIVE); PROTEIN,URINE NEGATIVE (NEGATIVE); UROBILINOGEN,URINE NEGATIVE mg/dL (<2.0)
--- NOTE | 2018-05-15 09:21 | Non Stress Test Report ---
Non Stress Test Datetime Report Generated by CPN: 05/15/2018 09:21 DEMOGRAPHIC EGA NST: 40.1 INDICATION Indication for Study: Other Indication for Study (NST) Other: Abdominal cramping MONITORING Monitor Explained: Monitor Explained; Test Explained; Patient Verbalized Understanding Time on Monitor: 05/15/2018 08:37 Time off Monitor: 05/15/2018 09:20 NST Duration: 43 NST INTERVENTIONS NST Interventions: PO Hydration; Reposition Patient Physician Notified NST: ADonal Pearce, CNM on unit viewed strip BABY A: [id number] BABY A Movement : Present Contraction Frequency : 8 FHR Baseline : 130 Accelerations : 15X15 Decelerations : None Variability : Moderate 6-25bpm NST Review: Meets Criteria for Reactive NST NST Review and Verified By : DALJIT Ace Results: Reactive NST REPORT Report Trigger: Send Report
[2018-05-15 09:24] LABS: URINE AMPHETAMINES SCREEN NEGATIVE; URINE BARBITURATES SCREEN NEGATIVE; URINE BENZODIAZEPINES SCREEN NEGATIVE; URINE COCAINE SCREEN NEGATIVE; URINE MARIJUANA (THC) SCREEN NEGATIVE; URINE METHADONE SCREEN NEGATIVE; URINE PHENCYCLIDINE SCREEN NEGATIVE
== END 2018-05-15 09:35 | disposition home or self-care (01) ==
LOC: LC 08:12
PROVIDERS: ATTEND Obstetrics & Gynecology
PROC: 4A1HXCZ Monitoring of Products of Conception, Cardiac Rate, External Approach (ICD-10-PCS; principal; 2018-05-15)
DX: O47.1 False labor at or after 37 completed weeks of gestation (principal); O48.0 Post-term pregnancy; Z3A.40 40 weeks gestation of pregnancy
CPT/HCPCS: 59025; 80307; 81005

== ENCOUNTER 2018-05-15 17:24 | Inpatient (IN) | payer MEDICAID ==
[2018-05-15] MEDS ORDERED: PENICILLIN G-K 5 MILLION UNIT VIAL ONE ×2 (17:42→21:15)
[2018-05-15] MEDS ORDERED: DEXTROSE 5%-LACTATED RINGERS 1,000 ML IV PRN (17:48)
[2018-05-15] MEDS ORDERED: PENICILLIN G POTASSIUM 5,000,000 UNIT in DEXTROSE 5%-WATER 100 ML IV ONE (17:48)
[2018-05-15] MEDS: RINGERS SOLUTION,LACTATED 1,000 ML IV PRN ×2 (17:50→18:46)
[2018-05-15] MEDS ORDERED: RINGERS SOLUTION,LACTATED 1,000 ML IV ONE (17:58)
[2018-05-15 18:13] LABS: HEMATOCRIT 29.8 % (36.0-47.0); HEMOGLOBIN 9.7 g/dL (12.0-15.5); MEAN CORPUSCULAR HEMOGLOBIN 24.4 pg (27.0-33.4); MEAN CORPUSCULAR HGB CONC 32.5 g/dL (32.0-36.0); MEAN CORPUSCULAR VOLUME 75 fl (80-97); PLATELET COUNT 393 10^3/uL (150-450); RED BLOOD COUNT 3.97 10^6/uL (3.72-5.28); RED CELL DISTRIBUTION WIDTH 15.1 % (11.5-14.0); WHITE BLOOD COUNT 12.4 10^3/uL (4.0-10.5)
[2018-05-15] MEDS ORDERED: FENTANYL CITRATE INJ/PF 100 MCG/2 ML AMPUL ONE (18:34)
[2018-05-15] MEDS ORDERED: EPHEDRINE SULFATE INJ 50 MG/1 ML AMPULE ONE (18:34)
[2018-05-15] MEDS ORDERED: PHENYLEPHRINE HCL INJ/PF 10 MG/1 ML SDV ONE (18:34)
[2018-05-15] MEDS ORDERED: LIDOCAINE 1.5%/EPINEPHRINE INJ 5 ML AMP ONE ×2 (18:35→19:12)
[2018-05-15] MEDS ORDERED: FENTANYL/BUPIVACAINE/NS/PF 300 MCG/150 ML RTUINJ EPI ONE (18:35)
[2018-05-15] MEDS ORDERED: OXYTOCIN/NORMAL SALINE 20 UNIT/1,000 ML RTUINJ ONE (18:36)
[2018-05-15] MEDS ORDERED: MISOPROSTOL 0.2 MG TABLET ONE (18:36)
[2018-05-15] MEDS ORDERED: LIDOCAINE 1% INJ-PF (10 MG/ML) 30 ML SDV ONE (18:36)
[2018-05-15] MEDS ORDERED: BUPIVACAINE HCL 0.25 % INJ/PF (2.5 MG/1 ML) 30 ML VIAL ONE (19:09)
--- NOTE | 2018-05-15 20:07 | Admission Physical ---
Datetime Report Generated by CPN: 05/15/2018 20:06 CURRENT ADMISSION Chief Complaint: Uterine Contractions Indication for Induction: Not Applicable Admit Impression : Term, Intrauterine ; Active Labor Admit Plan: Admit to Unit; Initiate Labor Augmentation Protocol ALLERGIES Medication Allergies: No Medication Allergies: Latex, Natural Rubber (05/15/2018) Latex: No Latex Allergies Food Allergies: none Environmental Allergies: none OBSTETRICAL HISTORY EDC: 05/14/2018 00:00 : 1 Para: 0 Term: 0 : 0 SAB: 0 IAB: 0 Ectopic: 0 Livin Cesareans: 0 VBACs: 0 Multiple Births: 0 Gestational Diabetes: No Rh Sensitization: No Incompetent Cervix: No KRYS: No Infertility: No ART Treatment: No Uterine Anomaly: No IUGR: No Hx Previous C/S: No Macrosomia: No Hx Loss/Stillborn: No PIH: No Hx : No Placenta Previa/Abruption: No Depression/PP Depression: No PTL/PROM: No Post Hemorrhage: No Current Procedures: Ultrasound Obstetrical History Comments: G1- Current SEE RECORDS Alcohol: No Marijuana : No Cocaine: No Other Illicit Drugs: No Cigarettes: Never Smoker. [id number] MEDICAL HISTORY Diabetes: No Blood Transfusion: No Pulmonary Disease (Asthma, TB): No Breast Disease: No Hypertension: No Clinical Project Coordinator Surgery: No Heart Disease: No Hosp/Surgery: No Autoimmune Disorder: No Anesthetic Complications: No Kidney Disease: Yes Abnormal Pap Smear: No Neuro/Epilepsy: No Psychiatric Disorders: No Other Medical Diseases: No Hepatitis/Liver Disease: No Significant Family History: No Varicosities/Phlebitis: No Trauma/Violence : No Thyroid Dysfunction: No INFECTIOUS HISTORY Gonorrhea: No Genital Herpes: No Chlamydia: No Tuberculosis: No Syphilis: No Hepatitis: No HIV/AIDS Exposure: No Rash or Viral Illness: No HPV: No PHYSICAL EXAM General: Normal HEENT: Normal Neurologic: Normal Thyroid: Normal Heart: Normal Lungs: Normal Breast: Normal Back: Normal Abdomen: Normal Genitourinary Exam: Normal Extremities: Normal DTRs: Normal Pelvic Type: Adequate Vital Signs: Reviewed; Within Normal Limits VAGINAL EXAM Dilatation: 4 Effacement: 90 Station: -1 MEMBRANES Pooling: Negative Membranes: Intact FETUS A EGA: 40.1 Monitoring: External US FHR- Baseline: 130 Variability: Moderate 6-25bpm Accelerations: 15X15 Decelerations: None FHR Category: Category I Estimated Weight (gm): 3500 Presentation: Vertex PLANS FOR LABOR AND DELIVERY Labor and Delivery: None Pain Management: Epidural Feeding Preference: Breast Benefit of Breast Feed Discussed: Yes Circumcision: N/A INFORMED CONSENT Signature: with User ID: Elsa
[2018-05-15] MEDS ORDERED: OXYTOCIN/NORMAL SALINE 20 UNIT/1,000 ML RTUINJ IV PRN ×2 (20:11→23:09)
[2018-05-15] MEDS ORDERED: PROMETHAZINE HCL 25 MG TABLET PO PRN (23:09)
[2018-05-15] MEDS ORDERED: BENZOCAINE/MENTHOL AEROSOL SPRAY 56 ML TOP PRN (23:09)
[2018-05-15] MEDS ORDERED: PSEUDOEPHEDRINE HCL 30 MG TABLET PO PRN (23:09)
[2018-05-15] MEDS ORDERED: PROMETHAZINE HCL INJ 25 MG/1 ML VIAL IV PRN (23:09)
[2018-05-15] MEDS ORDERED: ZOLPIDEM TARTRATE 5 MG TABLET PO PRN (23:09)
[2018-05-15] MEDS ORDERED: DIPH/PERTUSS(ACELL)/TETANUS VAC/PF 0.5 ML SYR (>=10YO) IM PRN (23:09)
[2018-05-15] MEDS ORDERED: PROMETHAZINE HCL 25 MG SUPP.RECT PR PRN (23:09)
[2018-05-15] MEDS ORDERED: ACETAMINOPHEN WITH CODEINE #3 TABLET PO PRN ×2 (23:09)
[2018-05-15] MEDS ORDERED: GLYCERIN/WITCH HAZEL LEAF 1 EACH MED..PAD TP PRN (23:09)
[2018-05-15] MEDS ORDERED: NA PHOS,M-B/NA PHOS,DI-BA (ADULT) 133 ML ENEMA PR PRN (23:09)
[2018-05-15] MEDS ORDERED: MEASLES,MUMPS&RUBELLA VACC/PF 0.5 ML VIAL SUBCUT PRN (23:09)
[2018-05-15] MEDS ORDERED: DIPHENHYDRAMINE HCL 25 MG CAPSULE PO PRN (23:09)
[2018-05-15] MEDS ORDERED: MAGNESIUM HYDROXIDE SUSP 30 ML UDCUP PO PRN (23:09)
[2018-05-15] MEDS ORDERED: ACETAMINOPHEN 650 MG SUPP.RECT PR PRN (23:09)
[2018-05-15] MEDS ORDERED: DIBUCAINE 1% OINTMENT 56 GM TP PRN (23:09)
[2018-05-15] MEDS ORDERED: IBUPROFEN 800 MG TABLET PO ONE (23:59)
[2018-05-15] MEDS ORDERED: FAMOTIDINE 20 MG TABLET PO ONE (23:59)
[2018-05-16] MEDS: IBUPROFEN 800 MG TABLET PO SCH ×3 (05:40→23:15)
[2018-05-16 07:14] LABS: HEMATOCRIT 27.2 % (36.0-47.0); HEMOGLOBIN 8.8 g/dL (12.0-15.5); MEAN CORPUSCULAR HEMOGLOBIN 24.3 pg (27.0-33.4); MEAN CORPUSCULAR HGB CONC 32.5 g/dL (32.0-36.0); MEAN CORPUSCULAR VOLUME 75 fl (80-97); PLATELET COUNT 401 10^3/uL (150-450); RED BLOOD COUNT 3.63 10^6/uL (3.72-5.28); RED CELL DISTRIBUTION WIDTH 15.7 % (11.5-14.0)
--- NOTE | 2018-05-16 11:01 | PDOC PROGRESS REPORT ---
Subjective-OB Progress Note for:: 05/16/18 Subjective: 18yo G1 now P1 s/p ppd1. Pt. ambulating and without difficulty, reports pain well tolerated with pain medication. Denies any concerns Physical Exam (OB) Vital Signs: Temp Pulse Resp BP Pulse Ox 98.1 F 83 18 121/68 98 05/16/18 01:12 05/16/18 01:12 05/16/18 01:12 05/16/18 01:12 05/16/18 01:12 Intake & Output 05/15/18 05/16/18 05/17/18 06:59 06:59 06:59 Intake Total 117 Balance 117 Weight 66.4 kg - General General Appearance: Appears well In distress: None - PIH/Pre-Eclampsia Headache: Absent Epigastric Pain: No Visual Changes: No - Episiotomy/Laceration Site Condition: N/A - Lochia Lochia Amount: Scant < 10 ml Lochia Color: Rubra/Red - Abdomen Description: Soft, Round Hernia Present: No Fundal Description: Firm, Midline Fundal Height: u/u - u/2 - Respiratory Respiratory Status: No respiratory distress - Extremities Upper extremity: Normal inspection Lower extremities: Normal inspection - Neurological Cognition: Normal Orientation: AAOx4 - Psychological Associated symptoms: Normal affect, Normal mood Objective-Diagnostic Laboratory: 05/16/18 06:46 05/15/18 05/15/18 05/16/18 18:04 18:04 06:46 WBC 12.4 H 20.0 H RBC 3.97 3.63 L Hgb 9.7 L 8.8 L Hct 29.8 L 27.2 L MCV 75 L 75 L MCH 24.4 L 24.3 L MCHC 32.5 32.5 RDW 15.1 H 15.7 H Plt Count 393 401 Blood Type B POSITIVE Antibody Screen NEGATIVE Assessment and Plan(PN) - Assessment and Plan (1) Vaginal delivery Is this a current diagnosis for this admission?: Yes Plan: Routine pp care, continue to monitor for s/s of infection (2) Anemia complicating , third trimester Is this a current diagnosis for this admission?: Yes Plan: Increase dietary iron and FeSO4 BID - Time Spent with Patient Time with patient: Less than 15 minutes Medications reviewed and adjusted accordingly: Yes - Disposition Anticipated Discharge: Home Within: within 24 hours
[2018-05-16] MEDS: PRENATAL VITAMIN W DHA CAPSULE PO SCH (11:13)
[2018-05-16] MEDS: SENNOSIDES/DOCUSATE 8.6-50 MG 1 EACH TABLET PO SCH (11:13)
[2018-05-16] MEDS: FAMOTIDINE 20 MG TABLET PO SCH ×2 (11:13→23:15)
[2018-05-16] MEDS: FERROUS SULFATE 325 MG TABLET PO SCH ×2 (11:13→17:21)
[2018-05-16] MEDS: DOCUSATE SODIUM 100 MG CAPSULE PO SCH ×2 (11:13→17:21)
[2018-05-17] MEDS: IBUPROFEN 800 MG TABLET PO SCH (05:58)
[2018-05-17] MEDS: DOCUSATE SODIUM 100 MG CAPSULE PO SCH (10:43)
[2018-05-17] MEDS: PRENATAL VITAMIN W DHA CAPSULE PO SCH (10:43)
[2018-05-17] MEDS: SENNOSIDES/DOCUSATE 8.6-50 MG 1 EACH TABLET PO SCH (10:43)
[2018-05-17] MEDS: FAMOTIDINE 20 MG TABLET PO SCH (10:43)
[2018-05-17] MEDS: FERROUS SULFATE 325 MG TABLET PO SCH (10:43)
--- NOTE | 2018-05-17 12:13 | PDOC DISCHARGE SUMMARY ---
Addendum entered and electronically signed by OZZY THOMAS CNM 05/17/18 12:17: Final Diagnosis Discharge Date: 05/17/18 - Final Diagnosis (1) Anemia complicating , third trimester Is this a current diagnosis for this admission?: Yes (2) Vaginal delivery Is this a current diagnosis for this admission?: Yes (3) Fever Is this a current diagnosis for this admission?: No (4) Is this a current diagnosis for this admission?: Yes (5) Pyelonephritis affecting in third trimester Is this a current diagnosis for this admission?: No Original Note: Final Diagnosis Discharge Date: 05/17/18 - PP Day #2, doing well, no complaints. B+ rubella immune, , anemia - Final Diagnosis (1) Anemia complicating , third trimester Is this a current diagnosis for this admission?: Yes (2) Vaginal delivery Is this a current diagnosis for this admission?: Yes (3) Fever Is this a current diagnosis for this admission?: Yes (4) Is this a current diagnosis for this admission?: Yes (5) Pyelonephritis affecting in third trimester Is this a current diagnosis for this admission?: Yes Discharge Data - Discharge Medication Prescriptions: Ferrous Sulfate [Feosol 325 mg Tablet] 325 mg PO BID #30 tablet Ibuprofen [Motrin 800 mg Tablet] 800 mg PO Q8 #60 tablet Home Medications: Vits96/Iron Fum/Folic [ Tablet] 1 tab PO DAILY 03/01/18 Ferrous Sulfate [Feosol 325 mg Tablet] 325 mg PO BID #30 tablet 05/17/18 Ibuprofen [Motrin 800 mg Tablet] 800 mg PO Q8 #60 tablet 05/17/18 Reason(s) for Admission: Onset of Labor Procedures: Ultrasound Intrapartum Procedure(s): Spontaneous Vaginal Delivery - Diagnosis Test Laboratory: Temp Pulse Resp BP Pulse Ox 98.0 F 75 16 108/61 100 05/17/18 07:46 05/17/18 07:46 05/17/18 07:46 05/17/18 07:46 05/17/18 07:46 05/15/18 05/16/18 18:04 06:46 RBC 3.97 3.63 L Hgb 9.7 L 8.8 L Hct 29.8 L 27.2 L - Discharge information/Instructions Discharge Activity: Activity As Tolerated, No Lifting Over 10 Pounds, Pelvic Rest Discharge Diet: As Tolerated, Regular Disposition: HOME, SELF-CARE Follow up with: [facility] in: 4, Weeks
[2018-05-17 13:24] VITALS: BP 122/75
--- NOTE | 2018-05-24 12:33 | Delivery Summary ---
Del Sum A-C Datetime Report Generated by CPN: 05/24/2018 12:33 DELIVERY PERSONNEL DELIVERY PERSONNEL: [id number] Delivery Doctor:: Briana Sandhu MD Labor and Delivery Nurse:: Shara Crowley RN Labor and Delivery Nurse:: Tess Wright RN Nursery Nurse:: Pricilla Rahman RN Nursery Nurse:: Cathleen Lutz Tech/LABORER [employer]: Leia Majano, QUALITY CONTROL ENGINEER MATERNAL INFORMATION Delivery Anesthesia: Epidural Medications After Delivery: Pitocin Drip 20 Units/1000ml NSS Estimated Blood Loss (ml): 200 Maternal Complications: None LABOR SUMMARY EDC: 05/14/2018 00:00 No. Babies in Womb: 1 Attempted: No Labor Anesthesia: Epidural LABOR INFORMATION Reason for Induction: Not Applicable Onset of Labor: 05/15/2018 17:36 Complete Dilatation: 05/15/2018 22:34 Oxytocin: Augmentation Group B Beta Strep: POSITIVE Antibiotics # of Doses: 2 Antibiotics Time of Last Dose: 2134 Name of Antibiotic Given: penicilin Steroids Given: None Reason Steroids Not Administered: Not Applicable MEMBRANES Membranes Rupture Method: Spontaneous Rupture of Membranes: 05/15/2018 21:31 Length of Rupture (hr): 1.35 Amniotic Fluid Color: Clear Amniotic Fluid Amount: Small Amniotic Fluid Odor: Normal STAGES OF LABOR Stage 1 hr: 4 Stage 1 min: 58 Stage 2 hr: 0 Stage 2 min: 18 Stage 3 hr: 0 Stage 3 min: 3 Total Time in Labor hr: 5 Total Time in Labor min: 19 VAGINAL DELIVERY Episiotomy: None Laceration #1: None Laceration Extension #1: N/A Laceration Repair: Not Applicable Sponge Count Correct: N/A CSECTION DELIVERY Primary Indication: N/A BABY A INFORMATION Delivery Date/Time: 05/15/2018 22:52 Method of Delivery: Vaginal Born in Route : No : N/A Forceps: N/A Vacuum Extraction: N/A Shoulder Dystocia : No PRESENTATION/POSITION BABY A Presentation: Cephalic Cephalic Presentation: Vertex Vertex Position: Left Occipital Anterior Breech Presentation: N/A PLACENTA INFORMATION BABY A Placenta Delivery Time : 05/15/2018 22:55 Placenta Method of Delivery: Spontaneous Placenta Status: Delivered SCORES BABY A Heart Rate 1 min: >100 bpm Resp Effort 1 min: Slow, Irregular Reflex Irritability 1 min: Cough or Sneeze or Pulls Away Muscle Tone 1 min: Some Flexion of Extremities Color 1 min: Blue/Pale Resuscitation Effort 1 min: Tactile Stimulation SCORE 1 MIN: 6 Heart Rate 5 min: >100 bpm Resp Effort 5 min: Slow, Irregular Reflex Irritability 5 min: Grimace Muscle Tone 5 min: Some Flexion of Extremities Color 5 min: Body [place], Extremities Blue Resuscitation Effort 5 min: Tactile Stimulation; Oxygen; PPV/NCPAP SCORE 5 MIN: 6 INFANT INFORMATION BABY A Sex: Female IDENTIFICATION BABY A Infant Verification Date/Time: 05/15/2018 23:27 ID Band Number: [id number] Mother's Name Verified: Yes Infant RN Verifying : Carlin Wright RN/CDonal Keo RN WEIGHT/LENGTH BABY A Birthweight (gm): 2895 Weight (lb): 6 Infant Weight (oz): 6 Length (in): 21.00 Length (cm): 53.34 CORD INFORMATION BABY A No. Cord Vessels: 3 Nuchal Cord : N/A Nuchal Cord- Other: compound hand Cord Blood Taken: Yes-For Storage (Mom's Blood type +) Infant Suction: Mouth; Nose ASSESSMENT BABY A Skin to Skin: Yes Care By: Carlin Wright RN Transferred To: NICU SIGNATURES Signature: with User ID: Elsa
== END 2018-05-17 13:54 | disposition home or self-care (01) | DRG 806 ==
LOC: LC 17:24 → LR 17:42 → 2S 05-16 01:05
PROVIDERS: ADMIT Obstetrics & Gynecology; ATTEND Obstetrics & Gynecology
PROC: 10E0XZZ Delivery of Products of Conception, External Approach (ICD-10-PCS; principal; 2018-05-15)
DX: O99.824 Streptococcus B carrier state complicating childbirth (principal); N12 Tubulo-interstitial nephritis, not specified as acute or chronic; Z37.0 Single live birth; O32.6XX0 Maternal care for compound presentation, not applicable or unspecified; O75.3 Other infection during labor; O99.02 Anemia complicating childbirth; D64.9 Anemia, unspecified; Z3A.40 40 weeks gestation of pregnancy
CPT/HCPCS: 36415; 85027; 86592; 86850; 86900; 86901; 88307; 90715; J2370; J2540; J2590; J3010; J3490

== ENCOUNTER 2019-07-11 13:57 | Emergency (ER) | payer MEDICAID ==
--- NOTE | 2019-07-11 14:22 | ER Document Report ---
ED GI/ - General Chief Complaint: OB Problem (<20wks) Stated Complaint: OB PROBLEM/CRAMPING/VAGINAL BLEEDING Primary Care Provider: LYNN DAVIS MD [Primary Care Provider] - Follow up as needed Mode of Arrival: Ambulatory Information source: Patient Notes: 19-year-old female no previous medical problems presents to the emergency room complaining of vaginal bleeding and cramping. States she started with light spotting yesterday, states last night before she went to bed she had a moderate amount of bleeding with passing clots. Woke up this morning with cramping continue to bleed passing clots. States she did not have any pad so she put on a baby diaper but states she is not changed it since earlier today. She is a 2 para 1. States she had a positive home about 4 weeks ago. Has not had any OB care she was not sure she wanted to continue with the pregnan cy. Denies any nausea, vomiting, no medications for symptoms. TRAVEL OUTSIDE OF THE [place] IN LAST 30 DAYS: No - Related Data Allergies/Adverse Reactions: Latex, Natural Rubber Adverse Reaction (Verified 05/15/18 18:04) Past Medical History - General Information source: Patient - Social History Smoking Status: Never Smoker Frequency of alcohol use: None Drug Abuse: None Lives with: Family Family History: Reviewed & Not Pertinent Review of Systems - Review of Systems Constitutional: No symptoms reported EENT: No symptoms reported Cardiovascular: No symptoms reported Respiratory: No symptoms reported Gastrointestinal: denies: Abdominal pain, Nausea, Vomiting Genitourinary: No symptoms reported Female Genitourinary: Last menstrual period - 05/16/2019, Vaginal bleeding, Other - pelvic pain Musculoskeletal: No symptoms reported Skin: No symptoms reported Neurological/Psychological: No symptoms reported -: Yes All other systems reviewed and negative Physical Exam - Vital signs Vitals: Temp Pulse Resp BP Pulse Ox 97.9 F 72 18 123/78 100 07/11/19 14:00 07/11/19 14:00 07/11/19 14:00 07/11/19 14:07/11/19 14:00 - General General appearance: Appears well, Alert In distress: Mild - HEENT Head: Normocephalic, Atraumatic Eyes: Normal Pupils: PERRL - Respiratory Respiratory status: No respiratory distress Chest status: Nontender Breath sounds: Normal Chest palpation: Normal - Cardiovascular Rhythm: Regular Heart sounds: Normal auscultation Murmur: No - Abdominal Inspection: Normal Distension: No distension Bowel sounds: Normal Tenderness: Tender - Mild tenderness on palpation over the lower abdomen.. No: Guarding, Rebound Organomegaly: No organomegaly - Genitourinary External exam: Normal Speculum exam: Cervix closed Vaginal bleeding: Heavy - with clots noted, no obvious products of conception noted. Bimanuel exam: Normal, Uterus enlarged. No: Cervical motion tender, Adnexal mass, Adnexal tenderness Notes: Pelvic exam with RN Corinne tongue lining stitcher. - Back Back: Normal, Nontender. No: CVA tenderness - Neurological Neuro grossly intact: Yes Cognition: Normal Orientation: AAOx4 Icard Coma Scale Eye Opening: Spontaneous Icard Coma Scale Verbal: Oriented David Coma Scale Motor: Obeys Commands David Coma Scale Total: 15 Speech: Normal Motor strength normal: LUE, RUE, LLE, RLE Sensory: Normal - Skin Skin Temperature: Warm Skin Moisture: Dry Skin Color: Normal Course - Re-evaluation Re-evalutation: 07/11/19 18:44 Patient is resting comfortably bleeding has resolved. Cramping has resolved. All test results were reviewed with patient. Patient was counseled on need to follow-up outpatient with an PATIENT SAFETY TECH for follow-up hCGs. Patient states she has an PATIENT SAFETY TECH and she will follow-up with them tomorrow. She will call them tomorrow for follow-up appointment. She was given strict return to emergency room guidelines. Return for any new or worsening symptoms. All questions were answered. Patient verbalized understanding and agrees with plan of care. 07/11/19 23:32 - Vital Signs Vital signs: Temp Pulse Resp BP Pulse Ox 98.3 F 89 16 136/65 H 100 07/11/19 18:58 07/11/19 18:58 07/11/19 18:58 07/11/19 18:58 07/11/19 18:58 - Laboratory Result Diagrams: 07/11/19 14:15 07/11/19 14:15 Laboratory results interpreted by me: 07/11/19 07/11/19 07/11/19 14:15 14:15 14:15 MCV 78 L MCH 26.2 L RDW 14.8 H Sodium 135.9 L Beta HCG, Quant 5186.10 H Urine Protein Urine Ketones Urine Blood Urine Urobilinogen Urine Ascorbic Acid Urine HCG, Qual 07/11/19 14:45 MCV MCH RDW Sodium Beta HCG, Quant Urine Protein 100 H Urine Ketones TRACE H Urine Blood LARGE H Urine Urobilinogen 2.0 H Urine Ascorbic Acid 40 H Urine HCG, Qual POSITIVE H - Diagnostic Test Radiology reviewed: Reports reviewed Discharge - Discharge Clinical Impression: Miscarriage Condition: Stable Disposition: HOME, SELF-CARE Instructions: Miscarriage (OM) Additional Instructions: Tylenol as needed for pain. Call your PATIENT SAFETY TECH tomorrow for follow-up appointment. If you are unable to get an appointment within the next 48 hours return to the emergency room in 48 hours for repeat testing. Return sooner for any new or worsening symptoms. Referrals: LYNN DAVIS MD [Primary Care Provider] - Follow up as needed
[2019-07-11 14:36] LABS: ABSOLUTE BASOPHILS # (AUTO) 0.1 10^3/uL (0.0-0.2); ABSOLUTE EOSINOPHILS # (AUTO) 0.1 10^3/uL (0.0-0.6); ABSOLUTE MONOCYTES (AUTO) 0.4 10^3/uL (0.1-1.4); BASOPHILS % (AUTO) 1.4 % (0-2); EOSINOPHILS % (AUTO) 2.5 % (0-6); HEMATOCRIT 37.7 % (36.0-47.0); HEMOGLOBIN 12.6 g/dL (12.0-15.5); LYMPHOCYTES % (AUTO) 35.4 % (13-45); MEAN CORPUSCULAR HEMOGLOBIN 26.2 pg (27.0-33.4); MEAN CORPUSCULAR HGB CONC 33.5 g/dL (32.0-36.0); MEAN CORPUSCULAR VOLUME 78 fl (80-97); PLATELET COUNT 335 10^3/uL (150-450); RED BLOOD COUNT 4.82 10^6/uL (3.72-5.28); RED CELL DISTRIBUTION WIDTH 14.8 % (11.5-14.0); SEGMENTED NEUTROPHILS % (AUTO) 53.7 % (42-78); TOTAL CELLS COUNTED % (AUTO) 100 %; WHITE BLOOD COUNT 5.6 10^3/uL (4.0-10.5)
[2019-07-11 14:52] LABS: ALBUMIN 4.6 g/dL (3.5-5.0); ALKALINE PHOSPHATASE 68 U/L (38-126); ANION GAP 9 (5-19); ASPARTATE AMINO TRANSFERASE 21 U/L (14-36); BILIRUBIN,TOTAL 0.8 mg/dL (0.2-1.3); BLOOD UREA NITROGEN 11 mg/dL (7-20); CALCIUM 9.7 mg/dL (8.4-10.2); CARBON DIOXIDE 23 mmol/L (22-30); CHLORIDE 104 mmol/L (98-107); GLUCOSE 90 mg/dL (75-110); POTASSIUM 3.7 mmol/L (3.6-5.0); TOTAL PROTEIN 8.1 g/dL (6.3-8.2)
[2019-07-11 15:15] LABS: APPEARANCE,URINE SLIGHTLY-CLOUDY; BILIRUBIN,URINE NEGATIVE (NEGATIVE); COLOR,URINE YELLOW; GLUCOSE, URINE NEGATIVE (NEGATIVE); KETONES,URINE TRACE mg/dL (NEGATIVE); LEUKOCYTE ESTERASE,URINE NEGATIVE (NEGATIVE); NITRITE,URINE NEGATIVE (NEGATIVE); PROTEIN,URINE 100 mg/dL (NEGATIVE); URINE SPECIFIC GRAVITY 1.029
[2019-07-11] MEDS ORDERED: ACETAMINOPHEN 325 MG TABLET PO ONE (15:43)
--- NOTE | 2019-07-11 18:15 | RADIOLOGY REPORT (SQ) ---
EXAM DESCRIPTION: U/S OB TRANSVAG W/DOPPLER IMAGES COMPLETED DATE/TIME: 07/11/2019 5:58 pm REASON FOR STUDY: vaginal bleeding COMPARISON: None. TECHNIQUE: Transvaginal static and realtime grayscale images acquired of the pelvis. Additional mayela cted spectral and color Doppler images recorded. All images stored on PACs. [email or web address] CLINICAL DATES: MAGGIE: 02/18/2020. EGA: 8 weeks 2 days LIMITATIONS: None. FINDINGS: FETUS: No intrauterine visualized. . CRL: Not visualized. GESTATIONAL SAC: Not visualized. YOLK SAC: Not visualized. UTERUS: The uterus measures 7.8 x 4.2 x 6.9 cm. A thickened appearing endometrial cavity which is h eterogenous in appearance. This finding may be on the basis of hemorrhage and or decidual reaction. CERVICAL LENGTH: 3.8 cm. Closed. RIGHT ADNEXA: The right ovary measures 2.9 x 1.8 x 2.2 cm. Normal ovary with normal vascular flow. No adnexal free fluid. No adnexal masses. LEFT ADNEXA: The left ovary measures 2.3 x 2.3 x 1.7 cm. Normal ovary with normal vascular flow. No adnexal free fluid. No adnexal masses. FREE FLUID: None. OTHER: No other significant finding. IMPRESSION: 1. No evidence of LIVING INTRAUTERINE . The endometrial cavity is thickened a nd demonstrates a heterogenous appearance which may be on the basis of hemorrhage and or decidual amira ction. Correlation suggested, correlation with lab values and follow-up short-term ultrasound examin ation. TECHNICAL DOCUMENTATION: JOB ID: [id number] 2010 [employer]- All Rights Reserved rev-07/21 Reading location - IP/workstation name: [email or web address]
[2019-07-11 18:59] VITALS: BP 136/65
== END 2019-07-11 18:59 | disposition home or self-care (01) ==
LOC: ER 13:57
DX: O03.9 Complete or unspecified spontaneous abortion without complication (principal); R10.2 Pelvic and perineal pain; R10.819 Abdominal tenderness, unspecified site; Z91.040 Latex allergy status
CPT/HCPCS: 99284; 86900; 86901; 36415; 84702; 85025; 81025; 80053; 81001; 76817; 93976; J3490

== ENCOUNTER 2019-12-17 11:46 | Emergency (ER) | payer MEDICAID ==
--- NOTE | 2019-12-17 13:55 | ER Document Report ---
ED Medical Screen (RME) - General Chief Complaint: STD Exposure Stated Complaint: STD CHECK Time Seen by Provider: 12/17/19 13:42 Primary Care Provider: LYNN DAVIS MD [Primary Care Provider] - Follow up as needed TRAVEL OUTSIDE OF THE [place] IN LAST 30 DAYS: No - HPI Notes: 12/17/19 13:50 19-year-old female G2, P1 with amenorrhea for the last 4 months who states that her partner came in yesterday and tested positive for gonorrhea and she would like to be tested but also is having complaints of bloating, amenorrhea for the last 4 months. Patient states that she "does not feel " so she has not taken a test. Patient is sexually active without any barrier methods to protect against STDs or . Has not tried any oixk-fdg-[id number] medications. Worse with time, nothing makes better. Denies any fevers chills, nausea, vomiting, diarrhea, abdominal pain. Denies any vaginal discharge or vaginal bleeding. I have greeted and performed a rapid initial assessment of this patient. A comprehensive ED assessment and evaluation of the patient, analysis of test results and completion of the medical decision making process will be conducted by additional ED providers. PHYSICAL EXAMINATION: GENERAL: Well-appearing, well-nourished and in no acute distress. CV: s1, s2 regular LUNGS: No respiratory distress Musculoskeletal: Normal range of motion NEUROLOGICAL: Normal speech, normal gait. SKIN: Warm, Dry, normal turgor, no rashes or lesions noted. Unable to perform a pelvic exam in triage due to not having a bed and lack of privacy - Related Data Allergies/Adverse Reactions: Latex, Natural Rubber Adverse Reaction (Verified 05/15/18 18:04) Physical Exam - Vital signs Vitals: Temp Pulse Resp BP Pulse Ox 98.9 F 101 H 16 123/65 97 12/17/19 11:54 12/17/19 11:54 12/17/19 11:54 12/17/19 11:54 12/17/19 11:54 Course - Vital Signs Vital signs: Temp Pulse Resp BP Pulse Ox 98.9 F 101 H 16 123/65 97 12/17/19 11:54 12/17/19 11:54 12/17/19 11:54 12/17/19 11:54 12/17/19 11:54 Doctor's Discharge - Discharge Referrals: LYNN DAVIS MD [Primary Care Provider] - Follow up as needed
[2019-12-17 14:19] LABS: ABSOLUTE EOSINOPHILS # (AUTO) 0.1 10^3/uL (0.0-0.6); ABSOLUTE LYMPHOCYTES (AUTO) 1.2 10^3/uL (0.5-4.7); ABSOLUTE MONOCYTES (AUTO) 0.6 10^3/uL (0.1-1.4); ABSOLUTE NEUT (AUTO) 9.1 10^3/uL (1.7-8.2); BASOPHILS % (AUTO) 0.4 % (0-2); EOSINOPHILS % (AUTO) 1.3 % (0-6); HEMATOCRIT 36.3 % (36.0-47.0); HEMOGLOBIN 12.2 g/dL (12.0-15.5); LYMPHOCYTES % (AUTO) 10.9 % (13-45); MEAN CORPUSCULAR HEMOGLOBIN 25.8 pg (27.0-33.4); MEAN CORPUSCULAR HGB CONC 33.5 g/dL (32.0-36.0); MEAN CORPUSCULAR VOLUME 77 fl (80-97); MONOCYTES % (AUTO) 5.7 % (3-13); PLATELET COUNT 310 10^3/uL (150-450); RED BLOOD COUNT 4.71 10^6/uL (3.72-5.28); RED CELL DISTRIBUTION WIDTH 14.5 % (11.5-14.0); SEGMENTED NEUTROPHILS % (AUTO) 81.7 % (42-78); TOTAL CELLS COUNTED % (AUTO) 100 %; WHITE BLOOD COUNT 11.1 10^3/uL (4.0-10.5)
[2019-12-17 14:35] LABS: APPEARANCE,URINE SLIGHTLY-CLOUDY; BILIRUBIN,URINE NEGATIVE (NEGATIVE); COLOR,URINE YELLOW; GLUCOSE, URINE NEGATIVE (NEGATIVE); KETONES,URINE NEGATIVE (NEGATIVE); LEUKOCYTE ESTERASE,URINE LARGE (NEGATIVE); NITRITE,URINE NEGATIVE (NEGATIVE); PROTEIN,URINE 30 mg/dL (NEGATIVE); URINE SPECIFIC GRAVITY 1.026
[2019-12-17 14:40] LABS: ALKALINE PHOSPHATASE 69 U/L (38-126); ANION GAP 11 (5-19); ASPARTATE AMINO TRANSFERASE 19 U/L (14-36); BILIRUBIN,DIRECT 0.2 mg/dL (0.0-0.4); BILIRUBIN,TOTAL 0.5 mg/dL (0.2-1.3); BLOOD UREA NITROGEN 11 mg/dL (7-20); CALCIUM 9.7 mg/dL (8.4-10.2); CARBON DIOXIDE 21 mmol/L (22-30); CHLORIDE 105 mmol/L (98-107); GLUCOSE 91 mg/dL (75-110); POTASSIUM 3.8 mmol/L (3.6-5.0); TOTAL PROTEIN 7.5 g/dL (6.3-8.2)
--- NOTE | 2019-12-17 18:55 | RADIOLOGY REPORT (SQ) ---
EXAM DESCRIPTION: U/S OB LIMITED IMAGES COMPLETED DATE/TIME: 12/17/2019 5:36 pm REASON FOR STUDY: amenorrhea,+ . LMP 08/15/2019. Clinical gestational age 17 weeks 5 days. COMPARISON: Pelvic ultrasound, 07/11/2019. TECHNIQUE: Static and Dynamic grayscale imaging performed of gravid uterus using transabdominal appr oach. Additional selected color Doppler and spectral images recorded. All stored on PACS. LIMITATIONS: None. FINDINGS: FETUSES SEEN:1 EGA: 17 weeks 3 days Calculated using BPD,FL,HC,AC documented on images. No discrepancy with clinica l dates. MAGGIE: 05/23/2020 EFW: 197+/- 29 grams PERCENTILE: Not applicable at this age LVP: 5.4 cm PLACENTA: Anterior grade 1 PRESENTATION: Cephalic. ANATOMY: HEART RATE: 157 beats per minute. FOUR CHAMBER HEART: Visualized. Limited evaluation of the anatomy at this gestational age. MATERNAL ADNEXA: Maternal ovaries not visualized. CERVICAL LENGTH: 4.3 cm Closed. OTHER: No other significant finding. IMPRESSION: LIVING INTRAUTERINE . ESTIMATED GESTATIONAL AGE 17 weeks 3 days Limited evaluation of the anatomy that early gestational age. Recommend routine anatomic screening t hat appropriate clinical age. Trimester of : Second trimester - 13 weeks 1 day to 27 weeks 6 days. TECHNICAL DOCUMENTATION: JOB ID: [id number] [facility]- All Rights Reserved Reading location - IP/workstation name: [email or web address]
[2019-12-17] MEDS ORDERED: AZITHROMYCIN 250 MG TABLET PO ONE (21:59)
--- NOTE | 2019-12-17 21:59 | ER Document Report ---
ED General - General Chief Complaint: Other Stated Complaint: STD CHECK Time Seen by Provider: 12/17/19 13:42 Primary Care Provider: LYNN DAVIS MD [Primary Care Provider] - Follow up as needed Mode of Arrival: Ambulatory Information source: Patient Notes: 12/17/19 13:47 - ED Nursing Note by RYNETOY Master Num: [id number] : 2000 Patient Age: 19 patient states she is concerned for std, patient states she may be . patient states her last period was in july or august. patient states her boyfriend was treated for stds yesterday and told her she needed to get checked MY NOTES 19-year-old black female arrives with chief complaint of having some mild vaginal discharge for several days and also she reports her boyfriend had a penile discharge for several days that she discovered on his underwear. He adv ised her he tested positive for chlamydia and was treated here at this facility yesterday. Patient also had a 6-day period in August but has not had a period since this time. She has been breast-feeding her 1/2-year-old daughter and did not think she can get . She delivered her baby here at [facility] 1/2 years ago normal spontaneous vaginal delivery. Patient reports her boyfriend found a on the line on a dating keri and had a sexual encounter; patient also has sore throat and her daughter has some rhinorrhea. She denies any felacio or other oral STD problems. TRAVEL OUTSIDE OF THE [place] IN LAST 30 DAYS: No - HPI Onset: This morning Onset/Duration: Sudden, Persistent Quality of pain: No pain Severity: None Pain Level: Denies Associated symptoms: Nausea Exacerbated by: Denies Relieved by: Denies Similar symptoms previously: Yes Recently seen / treated by doctor: No - Related Data Allergies/Adverse Reactions: Latex, Natural Rubber Adverse Reaction (Verified 05/15/18 18:04) Past Medical History - General Information source: Patient - Social History Smoking Status: Unknown if Ever Smoked Cigarette use (# per day): No Chew tobacco use (# tins/day): No Smoking Education Provided: No Frequency of alcohol use: Occasional Drug Abuse: None Lives with: Alone Family History: Reviewed & Not Pertinent Patient has suicidal ideation: No Patient has homicidal ideation: No Review of Systems - Review of Systems Constitutional: No symptoms reported EENT: No symptoms reported Cardiovascular: No symptoms reported Respiratory: No symptoms reported Gastrointestinal: No symptoms reported Genitourinary: See HPI, Discharge Female Genitourinary: See HPI, Last menstrual period, Musculoskeletal: No symptoms reported Skin: No symptoms reported Hematologic/Lymphatic: No symptoms reported Neurological/Psychological: No symptoms reported -: Yes All other systems reviewed and negative Physical Exam - Vital signs Vitals: Temp Pulse Resp BP Pulse Ox 98.9 F 101 H 16 123/65 97 12/17/19 11:54 12/17/19 11:54 12/17/19 11:54 12/17/19 11:54 12/17/19 11:54 Interpretation: Normal - General General appearance: Appears well, Alert - HEENT Head: Normocephalic, Atraumatic Eyes: Normal Pupils: PERRL Mouth/Lips: Normal Mucous membranes: Normal Pharynx: Erythema Neck: Normal - Respiratory Respiratory status: No respiratory distress Chest status: Nontender Breath sounds: Normal Chest palpation: Normal - Cardiovascular Rhythm: Regular Heart sounds: Normal auscultation Murmur: No - Abdominal Inspection: Normal Distension: No distension Bowel sounds: Normal Tenderness: Nontender Organomegaly: No organomegaly - Rectal Hemorrhoids: Other - deferred - Genitourinary Bimanuel exam: Other - deferred - Back Back: Normal, Nontender - Extremities General upper extremity: Normal inspection, Nontender, Normal color, Normal ROM, Normal temperature General lower extremity: Normal inspection, Nontender, Normal color, Normal ROM, Normal temperature, Normal weight bearing. No: Fabio's sign - Neurological Neuro grossly intact: Yes Cognition: Normal Orientation: AAOx4 David Coma Scale Eye Opening: Spontaneous David Coma Scale Verbal: Oriented [facility] Coma Scale Motor: Obeys Commands David Coma Scale Total: 15 Speech: Normal Motor strength normal: LUE, RUE, LLE, RLE Sensory: Normal - Psychological Associated symptoms: Normal affect, Normal mood - Skin Skin Temperature: Warm Skin Moisture: Dry Skin Color: Normal Course - Vital Signs Vital signs: Temp Pulse Resp BP Pulse Ox 98.5 F 83 16 125/60 100 12/17/19 18:23 12/17/19 18:23 12/17/19 18:23 12/17/19 18:23 12/17/19 18:23 - Laboratory Result Diagrams: 12/17/19 14:00 12/17/19 14:00 Laboratory results interpreted by me: 12/17/19 12/17/19 12/17/19 14:00 14:00 14:00 WBC 11.1 H MCV 77 L MCH 25.8 L RDW 14.5 H Lymph % (Auto) 10.9 L Absolute Neuts (auto) 9.1 H Seg Neutrophils % 81.7 H Sodium 136.7 L Carbon Dioxide 21 L Beta HCG, Quant 54477.00 H Urine Protein 30 H Urine Urobilinogen 4.0 H Ur Leukocyte Esterase LARGE H - Diagnostic Test Radiology reviewed: Reports reviewed Critical Care Note - Critical Care Note Comments: I spoke with Missy Cordero NP and she advised she treated the boyfriend yesterday who was positive for gonorrhea with Rocephin IM. Patient therefore received both Zithromax p.o. and Rocephin IM and advised sexual abstinence until all partners are treated and followed up with their personal doctor or OB doctor in this patient's case. Discharge - Discharge Clinical Impression: UTI (urinary tract infection) Qualifiers: Urinary tract infection type: acute cystitis Hematuria presence: without hematuria Qualified Code(s): N30.00 - Acute cystitis without hematuria Acute pharyngitis Qualifiers: Pharyngitis/tonsillitis etiology: unspecified etiology Qualified Code(s): J02.9 - Acute pharyngitis, unspecified Qualifiers: Weeks of gestation: 17 weeks Qualified Code(s): Z3A.17 - 17 weeks gestation of Condition: Good Disposition: HOME, SELF-CARE Additional Instructions: Follow-up with personal doctor this week and follow-up with OB doctor this week. Return to ER as needed take medicines as directed encourage fluids also may apply Bactroban to nose for pharyngitis. Prescriptions: Mupirocin [Bactroban 2% Ointment 22 gm] 1 applic NASL HSP PRN #1 tube PRN Reason: Nitrofurantoin Monohyd/M-Cryst [Macrobid 100 mg Capsule] 100 mg PO BID #10 cap Forms: Return to Work Referrals: LYNN DAVIS MD [Primary Care Provider] - Follow up as needed ED Sepsis - Sepsis Documentation Sepsis Patient: No
[2019-12-17] MEDS ORDERED: CEFTRIAXONE INJ 1000 MG VIAL IM ONE (22:22)
[2019-12-17 22:43] VITALS: BP 122/59
== END 2019-12-17 22:15 | disposition home or self-care (01) ==
LOC: ER 11:46
DX: O23.42 Unspecified infection of urinary tract in pregnancy, second trimester (principal); J02.9 Acute pharyngitis, unspecified; Z3A.17 17 weeks gestation of pregnancy; Z20.2 Contact with and (suspected) exposure to infections with a predominantly sexual mode of transmission
CPT/HCPCS: 99285; 96372; 36415; 84702; 85025; 80053; 81001; 76815; Q0144; J0696